=== PATIENT | female | born 1940 | race Two or more races ===

== ENCOUNTER 2017-10-29 15:58 | Outpatient (CLI) | payer OTHER ==
[~2017-10-29 15:58] MED LIST: TIZANIDINE HCL2 MG PO; VOLTAREN100 GM TP
== END 2017-10-29 16:30 | disposition home or self-care (01) ==
LOC: RAD 501 15:58
DX: M54.5 Low back pain (principal)

== ENCOUNTER 2017-11-14 07:37 | Outpatient (CLI) | payer OTHER ==
[~2017-11-14] VITALS: Ht 157.5 cm; Wt 63.5 kg
== END 2017-11-14 08:00 | disposition home or self-care (01) ==
LOC: OFIC 805 07:37
DX: J31.0 Chronic rhinitis (principal); J37.0 Chronic laryngitis; K14.0 Glossitis; H90.3 Sensorineural hearing loss, bilateral

== ENCOUNTER 2019-01-31 09:33 | Outpatient (CLI) | payer OTHER | END 2019-01-31 09:36 | disposition home or self-care (01) | LOC: RAD 09:33 | DX: M53.3 Sacrococcygeal disorders, not elsewhere classified (principal) ==

== ENCOUNTER 2019-04-16 07:53 | Outpatient (CLI) | payer OTHER | END 2019-04-16 07:58 | disposition home or self-care (01) | LOC: SONOGRAMA 07:53 | DX: R10.84 Generalized abdominal pain (principal) ==

== ENCOUNTER 2019-06-04 12:06 | Outpatient (CLI) | payer OTHER | END 2019-06-04 12:37 | disposition home or self-care (01) | LOC: RAD 12:06 → MAMO-SONO 13:15 | DX: M12.862 Other specific arthropathies, not elsewhere classified, left knee (principal); M12.841 Other specific arthropathies, not elsewhere classified, right hand; M12.842 Other specific arthropathies, not elsewhere classified, left hand ==

== ENCOUNTER 2019-07-05 19:07 | Emergency (ER) | payer OTHER ==
[~2019-07-05] VITALS: Ht 157.5 cm; Wt 65.8 kg
[2019-07-05] MEDS ORDERED: JANUMET 50-1,01 EACH PO (19:28)
== END 2019-07-05 21:08 | disposition home or self-care (01) ==
LOC: ER 19:07
DX: R21 Rash and other nonspecific skin eruption (principal); R60.0 Localized edema; T78.09XA Anaphylactic reaction due to other food products, initial encounter

== ENCOUNTER 2019-08-06 14:42 | Outpatient (CLI) | payer OTHER ==
[~2019-08-06 14:42] MED LIST changes: +JANUMET 50-1,01 EACH PO
== END 2019-08-06 14:47 | disposition home or self-care (01) ==
LOC: RAD 14:42
DX: M54.5 Low back pain (principal); M46.1 Sacroiliitis, not elsewhere classified

== ENCOUNTER 2019-10-28 11:53 | Outpatient (CLI) | payer OTHER | END 2019-10-28 12:07 | disposition home or self-care (01) | LOC: TOM 11:53 → MAMO-SONO 10-29 13:15 | PROVIDERS: ATTEND Internal Medicine Cardiovascular Disease | DX: R51 Headache (principal) ==

== ENCOUNTER 2019-11-05 11:13 | Outpatient (CLI) | payer OTHER | END 2019-11-05 11:21 | disposition home or self-care (01) | LOC: MAMO-SONO 11:13 | PROVIDERS: ATTEND Specialist | DX: Z12.31 Encounter for screening mammogram for malignant neoplasm of breast (principal); N60.11 Diffuse cystic mastopathy of right breast; N60.12 Diffuse cystic mastopathy of left breast ==

== ENCOUNTER 2019-12-05 07:29 | Outpatient (CLI) | payer OTHER | END 2019-12-05 07:36 | disposition home or self-care (01) | LOC: NUCLEAR 07:29 | PROVIDERS: ATTEND Internal Medicine Cardiovascular Disease | DX: R07.89 Other chest pain (principal) | CPT/HCPCS: 78452; 93017; A9500; J0153 ==

== ENCOUNTER 2020-08-12 14:43 | Emergency (ER) | payer OTHER ==
[~2020-08-12] VITALS: Ht 160 cm; Wt 65.8 kg
[2020-08-12] MEDS ORDERED: CRESTOR10 MG PO (15:20)
== END 2020-08-12 19:00 | disposition home or self-care (01) ==
LOC: ER 14:43
DX: S00.03XA Contusion of scalp, initial encounter (principal); S40.011A Contusion of right shoulder, initial encounter; M54.2 Cervicalgia; W18.09XA Striking against other object with subsequent fall, initial encounter; Y93.89 Activity, other specified; Y92.038 Other place in apartment as the place of occurrence of the external cause; Y99.8 Other external cause status

== ENCOUNTER 2020-09-01 14:58 | Outpatient (CLI) | payer OTHER ==
[~2020-09-01 14:58] MED LIST changes: +CRESTOR10 MG PO
== END 2020-09-01 15:08 | disposition home or self-care (01) ==
LOC: RAD 14:58
PROVIDERS: ATTEND Neuromusculoskeletal Medicine, Sports Medicine
DX: M25.551 Pain in right hip (principal)

== ENCOUNTER 2020-09-27 13:41 | Outpatient (CLI) | payer OTHER | END 2020-09-27 14:04 | disposition home or self-care (01) | LOC: MAMO-SONO 13:41 | PROVIDERS: ATTEND Specialist | DX: R92.8 Other abnormal and inconclusive findings on diagnostic imaging of breast (principal) ==

== ENCOUNTER 2020-10-05 15:54 | Outpatient (CLI) | payer OTHER ==
[2021-02-01] MEDS ORDERED: FORTAMET1000 MG PO (11:11)
[2021-02-01] MEDS ORDERED: CRESTOR10 MG PO (11:12)
[2021-02-01] MEDS ORDERED: ACID REDUCER20 M1 PO (11:12)
[2021-02-01] MEDS ORDERED: TYLENO PO (11:13)
[2021-02-01] MEDS ORDERED: OMEGA PO (11:13)
[2021-02-01] MEDS ORDERED: EVISTA60 MG PO (11:13)
[2021-02-01] MEDS ORDERED: OCUVITE ADULT1 EAC1 PO (11:30)
== END 2020-10-05 16:18 | disposition home or self-care (01) ==
LOC: RAD 15:54
DX: M19.90 Unspecified osteoarthritis, unspecified site (principal)

== ENCOUNTER 2021-01-18 14:23 | Outpatient (CLI) | payer OTHER ==
[2021-02-01] MEDS ORDERED: FORTAMET1000 MG PO (11:11)
[2021-02-01] MEDS ORDERED: CRESTOR10 MG PO (11:12)
[2021-02-01] MEDS ORDERED: ACID REDUCER20 M1 PO (11:12)
[2021-02-01] MEDS ORDERED: EVISTA60 MG PO (11:13)
[2021-02-01] MEDS ORDERED: OMEGA PO (11:13)
[2021-02-01] MEDS ORDERED: TYLENO PO (11:13)
[2021-02-01] MEDS ORDERED: OCUVITE ADULT1 EAC1 PO (11:30)
== END 2021-01-18 14:27 | disposition home or self-care (01) ==
LOC: RAD 14:23
PROVIDERS: ATTEND Surgery Surgery of the Hand
DX: M15.0 Primary generalized (osteo)arthritis (principal); I10 Essential (primary) hypertension

== ENCOUNTER → 2021-02-01 08:00 | Outpatient (CLI) | payer OTHER ==
[~2021-02-01 08:00] MED LIST changes: +ACID REDUCER20 M1 PO; +EVISTA60 MG PO; +FORTAMET1000 MG PO; +OCUVITE ADULT1 EAC1 PO; +OMEGA PO; +TYLENO PO
== END | disposition home or self-care (01) ==
LOC: ADM 01-31 08:00 → LAB 08:00 → ADM 10:15 → CIR.AMB 02-02 06:00 → EDSTATUS 02-02 10:15
PROVIDERS: ATTEND Surgery Surgery of the Hand
DX: I10 Essential (primary) hypertension (principal); Z01.810 Encounter for preprocedural cardiovascular examination; M67.441 Ganglion, right hand; Q82.8 Other specified congenital malformations of skin

== ENCOUNTER → 2021-02-24 | Outpatient (CLI) | payer OTHER | END | disposition home or self-care (01) | LOC: PPH VACUNA 08:30 | PROVIDERS: ATTEND Emergency Medicine Pediatric Emergency Medicine | DX: Z23 Encounter for immunization (principal) ==

== ENCOUNTER → 2021-03-28 14:05 | Outpatient (CLI) | payer OTHER | END | disposition home or self-care (01) | LOC: EKG 14:05 | PROVIDERS: ATTEND Surgery Surgery of the Hand | DX: I10 Essential (primary) hypertension (principal); Z01.810 Encounter for preprocedural cardiovascular examination ==

== ENCOUNTER 2021-06-08 10:03 | Outpatient (CLI) | payer OTHER | END 2021-06-08 10:05 | disposition home or self-care (01) | LOC: RAD 10:03 | PROVIDERS: ATTEND Internal Medicine Cardiovascular Disease | DX: M62.830 Muscle spasm of back (principal); M12.88 Other specific arthropathies, not elsewhere classified, other specified site ==

== ENCOUNTER 2021-12-20 13:20 | Outpatient (CLI) | payer OTHER | END 2021-12-20 13:30 | disposition home or self-care (01) | LOC: MAMO-SONO 13:20 | DX: Z12.31 Encounter for screening mammogram for malignant neoplasm of breast (principal); N60.11 Diffuse cystic mastopathy of right breast; N60.12 Diffuse cystic mastopathy of left breast ==

== ENCOUNTER 2022-01-24 14:17 | Outpatient (CLI) | payer OTHER ==
[2022-01-25] MEDS ORDERED: ZANAFLEX2 MG PO (11:53)
== END 2022-01-24 14:18 | disposition home or self-care (01) ==
LOC: NUCLEAR 14:17
PROVIDERS: ATTEND Internal Medicine Cardiovascular Disease
DX: M81.0 Age-related osteoporosis without current pathological fracture (principal); E55.9 Vitamin D deficiency, unspecified; Z88.2 Allergy status to sulfonamides; Z91.013 Allergy to seafood

== ENCOUNTER 2023-05-25 14:53 | Inpatient (IN) | payer OTHER ==
[~2023-05-25] VITALS: Ht 157.5 cm; Wt 65.8 kg
[~2023-05-25 14:53] MED LIST changes: +ZANAFLEX2 MG PO
[2023-05-25 16:43] LABS: HEMATOCRIT 38.8 % (36.0-45.00); HEMOGLOBIN 13.3 g/dL (12.0-15.00); MEAN CORPUSCULAR HEMOGLOBIN 30.9 pg (27.00-32.0); MEAN CORPUSCULAR HGB CONC 34.4 g/dl (32.0-36.0); PLATELET COUNT 228 K/uL (150-450); RED BLOOD COUNT 4.31 M/uL (4.00-6.00); RED CELL DISTRIBUTION WIDTH 13.6 % (11.5-14.5); URINE APPEARANCE Turbid; URINE BILIRRUBIN Negative (NEGATIVE); URINE BLOOD Trace; URINE COLOR Dark Yellow; URINE GLUCOSE Negative (NEGATIVE); URINE LEUKOCYTE Small; URINE NITRATE Negative
[2023-05-25 16:46] LABS: URINE RBC 23.5 uL (0.0-20.8); URINE WBC 170.5 uL (0.0-23.2)
[2023-05-25 17:00] LABS: INR 1.22; PARTIAL THROMBOPLASTIN TIME 26.4 SECONDS (22.0-34.0); PROTHROMBIN TIME 12.6 SECONDS (9.0-11.5)
[2023-05-25 17:03] LABS: URINE BACTERIA > 9821.5 uL (0.0-1933); URINE EPITHELIAL CELLS > 201.7 uL (0.0-38.8); URINE MUCUS SCANT; URINE PROTEIN 100 (NEGATIVE)
[2023-05-25 17:04] LABS: URINE CRYSTALS FEW /HPF
[2023-05-25 17:05] LABS: ALBUMIN 3.6 gm/dL (3.4-5.0); BILIRUBIN TOTAL 0.59 mg/dL (0.3-1.2); CALCIUM 9.7 mg/dL (8.5-10.1); CREATININE SERUM 0.91 mg/dL (0.55-1.02); GFR 59.18; GLOBULINA 3.8 G/DL (2.4-3.5); POTASSIUM 4.5 mEq/L (3.5-5.1); TOTAL PROTEIN 7.4 gm/dL (6.4-8.2)
[2023-05-25 22:20] LABS: CKMB 5.7 NG/ML (0.5-3.6)
[2023-05-26 08:05] LABS: HEMATOCRIT 34.7 % (36.0-45.00); MEAN CELL VOLUME 89.7 fL (80.00-100.00); MEAN CORPUSCULAR HEMOGLOBIN 30.9 pg (27.00-32.0); MEAN CORPUSCULAR HGB CONC 34.5 g/dl (32.0-36.0); PLATELET COUNT 205 K/uL (150-450); RED BLOOD COUNT 3.87 M/uL (4.00-6.00); RED CELL DISTRIBUTION WIDTH 13.5 % (11.5-14.5)
[2023-05-26 08:16] LABS: PH,URINE 5.5 (5.0-8.0); URINE APPEARANCE Clear; URINE BILIRRUBIN Negative (NEGATIVE); URINE BLOOD Negative; URINE COLOR Yellow; URINE GLUCOSE Negative (NEGATIVE); URINE LEUKOCYTE Trace; URINE NITRATE Negative; URINE PROTEIN Trace (NEGATIVE)
[2023-05-26 08:20] LABS: URINE BACTERIA 2032.2 uL (0.0-1933); URINE EPITHELIAL CELLS 39.7 uL (0.0-38.8); URINE WBC 25.3 uL (0.0-23.2)
[2023-05-26 08:22] LABS: INR 1.2; PARTIAL THROMBOPLASTIN TIME 26.5 SECONDS (22.0-34.0); PROTHROMBIN TIME 12.4 SECONDS (9.0-11.5)
[2023-05-26 08:31] LABS: ALBUMIN 3.2 gm/dL (3.4-5.0); BILIRUBIN TOTAL 0.41 mg/dL (0.3-1.2); BILIRUBIN,CONJUGATED 0.12 mg/dL (0.0-0.2); BILIRUBIN,UNCONJUGATED 0.29 mg/dL (0.0-0.6); CALCIUM 8.9 mg/dL (8.5-10.1); CHOL HDL RATIO 4.8 (0-5.0); CREATININE SERUM 0.73 mg/dL (0.55-1.02); GFR 76.32; GLOBULINA 3.1 G/DL (2.4-3.5); POTASSIUM 3.89 mEq/L (3.5-5.1); TOTAL PROTEIN 6.3 gm/dL (6.4-8.2)
[2023-05-26 08:52] LABS: C-REACTIVE PROTEIN 0.62 MG/DL (0.00-0.29); CKMB 7.7 NG/ML (0.5-3.6)
[2023-05-26 13:07] LABS: CKMB 7.3 NG/ML (0.5-3.6)
[2023-05-28 07:50] LABS: HEMATOCRIT 37.5 % (36.0-45.00); HEMOGLOBIN 12.7 g/dL (12.0-15.00); MEAN CELL VOLUME 89.9 fL (80.00-100.00); MEAN CORPUSCULAR HEMOGLOBIN 30.5 pg (27.00-32.0); MEAN CORPUSCULAR HGB CONC 33.9 g/dl (32.0-36.0); PLATELET COUNT 227 K/uL (150-450); RED BLOOD COUNT 4.17 M/uL (4.00-6.00); RED CELL DISTRIBUTION WIDTH 13.5 % (11.5-14.5)
[2023-05-28 08:28] LABS: ALBUMIN 3.3 gm/dL (3.4-5.0); BILIRUBIN TOTAL 0.45 mg/dL (0.3-1.2); CALCIUM 8.5 mg/dL (8.5-10.1); CREATININE SERUM 0.7 mg/dL (0.55-1.02); GFR 80.11; GLOBULINA 2.9 G/DL (2.4-3.5); PHOSPHOROUS 2.9 mg/dL (2.5-4.9); POTASSIUM 3.78 mEq/L (3.5-5.1); TOTAL PROTEIN 6.2 gm/dL (6.4-8.2)
[2023-05-28 08:30] LABS: MAGNESIUM 1.4 mg/dL (1.8-2.4)
[2023-05-30 06:15] LABS: HEMATOCRIT 32.8 % (36.0-45.00); HEMOGLOBIN 11.5 g/dL (12.0-15.00); MEAN CELL VOLUME 87.8 fL (80.00-100.00); MEAN CORPUSCULAR HEMOGLOBIN 30.9 pg (27.00-32.0); MEAN CORPUSCULAR HGB CONC 35.2 g/dl (32.0-36.0); PLATELET COUNT 250 K/uL (150-450); RED BLOOD COUNT 3.74 M/uL (4.00-6.00); RED CELL DISTRIBUTION WIDTH 13.7 % (11.5-14.5)
[2023-05-30 06:42] LABS: BILIRUBIN TOTAL 0.44 mg/dL (0.3-1.2); CALCIUM 8.3 mg/dL (8.5-10.1); CREATININE SERUM 0.66 mg/dL (0.55-1.02); GFR 85.74; GLOBULINA 2.9 G/DL (2.4-3.5); MAGNESIUM 1.6 mg/dL (1.8-2.4); PHOSPHOROUS 2.9 mg/dL (2.5-4.9); POTASSIUM 3.49 mEq/L (3.5-5.1); TOTAL PROTEIN 5.9 gm/dL (6.4-8.2)
== END 2023-05-30 12:17 | disposition designated cancer center or children's hospital (05) | DRG 280 ==
LOC: ER 14:53 → ICU-2 21:21 → ICU 05-26 18:02
PROVIDERS: Emergency Medicine; General Practice; ADMIT Internal Medicine; ATTEND Internal Medicine
PROC: B24BZZZ Ultrasonography of Heart with Aorta (ICD-10-PCS; principal; 2023-05-25)
PROC: BW24ZZZ Computerized Tomography (CT Scan) of Chest and Abdomen (ICD-10-PCS; 2023-05-29)
DX: I21.4 Non-ST elevation (NSTEMI) myocardial infarction (principal); J18.9 Pneumonia, unspecified organism; N39.0 Urinary tract infection, site not specified; E11.9 Type 2 diabetes mellitus without complications; Z79.4 Long term (current) use of insulin; E78.5 Hyperlipidemia, unspecified; I25.10 Atherosclerotic heart disease of native coronary artery without angina pectoris

== ENCOUNTER 2023-06-07 18:08 | Emergency (ER) | payer OTHER ==
[~2023-06-07] VITALS: Ht 157.5 cm; Wt 61.2 kg
[2023-06-07] MEDS ORDERED: LIPITOR40 M1 PO (19:09)
[2023-06-07] MEDS ORDERED: METROPOLOL (19:09)
[2023-06-07] MEDS ORDERED: CHILDREN'S ASPI81 MG (19:09)
[2023-06-07] MEDS ORDERED: COZAAR25 MG PO (19:09)
[2023-06-07] MEDS ORDERED: PEPCID AC10 MG (19:10)
[2023-06-07] MEDS ORDERED: EVISTA60 MG PO (19:10)
[2023-06-07 20:21] LABS: URINE APPEARANCE Cloudy; URINE BILIRRUBIN Negative (NEGATIVE); URINE BLOOD Negative; URINE COLOR Yellow; URINE GLUCOSE Negative (NEGATIVE); URINE LEUKOCYTE Small; URINE NITRATE Negative; URINE PROTEIN 30 (NEGATIVE); URINE UROBILINOGEN 0.2 E.U./dl
[2023-06-07 20:24] LABS: URINE BACTERIA 201.5 uL (0.0-1933); URINE EPITHELIAL CELLS 97.5 uL (0.0-38.8); URINE RBC 15.6 uL (0.0-20.8); URINE WBC 17.1 uL (0.0-23.2)
[2023-06-07] MEDS ORDERED: PYRIDIUM100 MG PO (21:39)
== END 2023-06-07 21:44 | disposition home or self-care (01) ==
LOC: ER 18:09
PROVIDERS: Emergency Medicine
DX: R30.0 Dysuria (principal); Z88.2 Allergy status to sulfonamides; Z91.013 Allergy to seafood; I20.89 Other forms of angina pectoris

== ENCOUNTER 2023-07-04 07:28 | Outpatient (CLI) | payer OTHER ==
[~2023-07-04 07:28] MED LIST changes: +CHILDREN'S ASPI81 MG; +COZAAR25 MG PO; +LIPITOR40 M1 PO; +METROPOLOL; +PEPCID AC10 MG; +PYRIDIUM100 MG PO
== END 2023-07-04 07:31 | disposition home or self-care (01) ==
LOC: NUCLEAR 07:28
PROVIDERS: ATTEND Internal Medicine Gastroenterology
DX: E11.43 Type 2 diabetes mellitus with diabetic autonomic (poly)neuropathy (principal); H35.30 Unspecified macular degeneration; R11.2 Nausea with vomiting, unspecified
CPT/HCPCS: 78264; A9541

== ENCOUNTER 2023-12-03 11:23 | Outpatient (CLI) | payer OTHER | END 2023-12-03 11:31 | disposition home or self-care (01) | LOC: MAMO-SONO 11:23 | DX: N60.11 Diffuse cystic mastopathy of right breast (principal); N60.12 Diffuse cystic mastopathy of left breast; Z12.31 Encounter for screening mammogram for malignant neoplasm of breast ==

== ENCOUNTER 2024-01-16 13:59 | Outpatient (CLI) | payer OTHER | END 2024-01-16 14:05 | disposition home or self-care (01) | LOC: SONOGRAMA 13:59 | PROVIDERS: ATTEND Student in an Organized Health Care Education/Training Program | DX: N18.2 Chronic kidney disease, stage 2 (mild) (principal) ==

== ENCOUNTER 2024-09-02 07:48 | Outpatient (CLI) | payer OTHER | END 2024-09-02 07:51 | disposition home or self-care (01) | LOC: SONOGRAMA 07:48 | PROVIDERS: ATTEND Internal Medicine Gastroenterology | DX: R10.9 Unspecified abdominal pain (principal) ==

== ENCOUNTER 2025-01-15 13:52 | Outpatient (CLI) | payer OTHER | END 2025-01-15 13:55 | disposition home or self-care (01) | LOC: MAMO-SONO 13:52 | PROVIDERS: ATTEND Obstetrics & Gynecology | DX: N60.21 Fibroadenosis of right breast (principal); N60.22 Fibroadenosis of left breast ==

== ENCOUNTER 2025-03-12 10:24 | Outpatient (CLI) | payer OTHER | END 2025-03-12 10:25 | disposition home or self-care (01) | LOC: NUCLEAR 10:24 | PROVIDERS: ATTEND Internal Medicine Endocrinology, Diabetes & Metabolism | DX: M81.0 Age-related osteoporosis without current pathological fracture (principal) ==